=== PATIENT | male | born 1960 | race Two or more races ===

== ENCOUNTER 2025-05-08 02:08 | Emergency (ER) | payer SELFPAY ==
[~2025-05-08] VITALS: Ht 167.6 cm; Wt 79.5 kg
[2025-05-08 02:23] VITALS: TEMP 100.2
[2025-05-08] MEDS: SODIUM CHLORIDE 0.9% 1,000 ML IV ONE (05:42)
[2025-05-08 05:57] LABS: CALCIUM, TOTAL 8.1 mg/dL (8.8-10.5); CREATININE 1.32 mg/dL (0.60-1.30); GLOMERULAR FILTR. RATE CALC 55.0 mL/min (>60); GLUCOSE,RANDOM 119.0 mg/dL (70-110); SODIUM SERUM 140.0 mmol/L (136-145); UREA NITROGEN, BLOOD 15.0 mg/dL (7-18)
[2025-05-08 06:07] LABS: LACTIC ACID 0.7 mmol/L (0.4-2.0)
[2025-05-08 06:13] LABS: PLATELET COUNT (AUTO) 253 K/uL (150-450); RED BLOOD CELL COUNT(AUTO) 4.35 MIL/uL (4.50-5.90); RED CELL DISTRIBUTION WIDTH 13.9 % (11.5-14.5); WHITE BLOOD COUNT (AUTO) 11.4 K/uL (4.5-11.0)
[2025-05-08 06:45] LABS: TROPONIN I-HIGH SENSITIVITY 119 ng/L (<76)
[2025-05-08 09:15] LABS: TROPONIN I-HIGH SENSITIVITY 137 ng/L (<76)
[2025-05-08 10:34] VITALS: BP 117/77; PULSE 73; RESP 16; O2SAT 94
== END 2025-05-08 12:44 | disposition left against medical advice (07) ==
LOC: EDBD 02:09 → EMS 02:09 → EDH 07:26 → UNDOADMIN 07:26 → EMS 12:44
DX: F10.129 Alcohol abuse with intoxication, unspecified (principal); R06.02 Shortness of breath; R51.9 Headache, unspecified; I25.2 Old myocardial infarction; Y90.9 Presence of alcohol in blood, level not specified
CPT/HCPCS: 99285; 70450; 96360; 96361; 71045; 80048; 83605; 83880; 84484; 85025; 72125; 93005; 36415; G0480